=== PATIENT | male | born 1965 | race Caucasian/White ===

== ENCOUNTER 2018-12-11 08:39 | Day surgery (SDC) | payer OTHER ==
[2018-12-11] MEDS ORDERED: MIDAZOLAM 1 MG/ML 2 ML INJ ×2 (10:42)
[2018-12-11] MEDS ORDERED: FENTAnyl 50 MCG/ML VIAL (10:42)
== END 2018-12-11 11:15 | disposition home or self-care (01) ==
LOC: GIL 08:39
DX: Z12.11 Encounter for screening for malignant neoplasm of colon (principal); D12.5 Benign neoplasm of sigmoid colon; K57.30 Diverticulosis of large intestine without perforation or abscess without bleeding
CPT/HCPCS: 45380